=== PATIENT | male | born 1945 | race Caucasian/White ===

== ENCOUNTER → 2018-06-20 | Outpatient (CLI) | payer MEDICARE, OTHER ==
[~2018-06-20] MED LIST: CEP500 PO; ESC10 PO
--- NOTE | 2018-06-20 12:07 | RADIOLOGY IMAGING REPORT ---
FACILITY: [facility] PATIENT NAME: Mike Sy : 1945 MR: [id number] V: [id number] EXAM DATE: ORDERING PHYSICIAN: BRENDON GUADARRAMA TECHNOLOGIST: Location: [facility] - [place] Patient: Mike Sy : 1945 Visit/Account:[id number] Date of Sevice: 06/20/2018 Exam type: CHEST PA AND LAT History: Cough x2 weeks hypoxia Comparison: October 26, 2015. Findings: Increased bronchial vascular markings are seen in the medial right lung base when compared to the dante or study. Left lung is relatively free of consolidation. There is no evidence of pleural effusions or overt pulmonary edema. Cardiac silhouette is normal in size. IMPRESSION: 1. Increased bronchial vascular markings in the medial right lung base when compared the prior study . This could represent an acute infectious/inflammatory process. Short-term interval follow-up ches t recommended Report Dictated By: Hilary Limon MD at 06/20/2018 12:00 PM Report E-Signed By: Hilary Limon MD at 06/20/2018 12:02 PM WSN:[email or web address]
== END ==
LOC: RAD 11:18
PROVIDERS: ATTEND Nurse Practitioner Family
DX: R05 Cough (principal); R09.02 Hypoxemia
CPT/HCPCS: 71046

== ENCOUNTER → 2018-06-26 | Outpatient (CLI) | payer MEDICARE, OTHER ==
--- NOTE | 2018-06-26 13:22 | RADIOLOGY IMAGING REPORT ---
FACILITY: [facility] - [place] PATIENT NAME: Mike Sy : 1945 MR: [id number] V: [id number] EXAM DATE: ORDERING PHYSICIAN: BRENDON GUADARRAMA TECHNOLOGIST: Location: [facility] - [place] Patient: Mike Sy : 1945 Visit/Account:[id number] Date of Sevice: 06/26/2018 Exam type: CHEST PA LAT History: Source of breath, hypoxia, cough Comparison: June 20, 2018. Findings: There is been further increase in the bronchovascular markings in the right lung base with mild eleva tion right hemidiaphragm. This suggests at least a component of atelectasis although a superimposed infiltrate is also in the differential diagnosis. The left lung appears relatively well aerated. Th ere is no evidence of pleural effusions or overt pulmonary edema. The cardiac silhouette is normal i n size. IMPRESSION: 1. Increasing buckle vascular markings in the right lung base consistent with atelectasis and or inf iltrate Report Dictated By: Hilary Limon MD at 06/26/2018 1:17 PM Report E-Signed By: Hilary Limon MD at 06/26/2018 1:19 PM WSN:[email or web address]
== END ==
LOC: RAD 11:49
PROVIDERS: ATTEND Nurse Practitioner Family
DX: R06.02 Shortness of breath (principal); R09.02 Hypoxemia; R05 Cough
CPT/HCPCS: 71046

== ENCOUNTER 2018-07-01 14:13 | Emergency (ER) | payer MEDICARE, OTHER ==
[~2018-07-01 14:13] MED LIST changes: -RIVA15TA PO
--- NOTE | 2018-07-01 14:27 | ER Report ---
History and Physical Time Seen By MD: 14:22 Hx. of Stated Complaint: PATIENT SEEN IN DOCTORS OFFICE THIS MORNING. WAS TOLD HE NEEDED A CAT SCAN TO RULE OUT A BLOOD CLOT HPI/ROS CHIEF COMPLAINT: Cough and dyspnea HISTORY OF PRESENT ILLNESS: This is a 72-year-old male who presents to the emergency department for a chronic cough and shortness of breath. Patient states that roughly 1 month ago he developed a cough, has been chronic since, he is followed up with his primary care provider 2 times, has been placed on antibiotics twice for pneumonia. Patient states that he's had increased shortness of breath over the last 1-2 weeks, with more pronounced shortness of breath over the last 4 days. The patient was seen and evaluated by his primary care provider today, the did some laboratory studies and noted his SPO2 to be in the 80s in their office. The patient's d-dimer came back elevated at his primary care providers, subsequently was sent to the ER for further evaluation. Patient arrives on oxygen from his primary care provider, normally does not wear oxygen. Has no history of lung disease. Denies chest pain. No nausea or vomiting. No headaches. No rashes or headaches. No fevers or chills. REVIEW OF SYSTEMS: Constitutional: No fever, no chills. Eyes: No discharge. ENT: No sore throat. Cardiovascular: No chest pain, no palpitations. Respiratory: As above. Gastrointestinal: No abdominal pain, no vomiting. Genitourinary: No hematuria. Musculoskeletal: No back pain. Skin: No rashes. Neurological: No headache. Allergies: Coded Allergies: No Known Allergies (Verified Allergy, Mild, 08/03/09) Home Meds Active Scripts Rivaroxaban 15 Mg (XARELTO 15 MG) 15 Mg Tablet, 15 MG PO BID for 21 Days, #41 TAB 0 Refills Prov:RADHA ISAACS WARP SPOOLER-BC 07/01/18 Reported Medications Escitalopram Oxalate (Lexapro) 10 Mg Tab, 15 MG PO QDAY, 0 Refills 11/18/08 Past Medical/Surgical History The patient has a past medical and surgical history of broken arm and leg as a child, wears glasses, partial thyroidectomy, anxiety and depression. Reviewed Nurses Notes: Yes Hx Smoking: Yes (CIGARS 3 DAILY/2009) Hx Substance Use Disorder: No Hx Alcohol Use: Yes Constitutional Vital Sign - Last 24 Hours 07/01/18 07/01/18 07/01/18 07/01/18 14:16 14:16 14:20 14:30 Temp 97.6 97.6 Pulse 69 69 Resp 16 16 B/P (MAP) 150/84 150/84 (106) 150/84 (106) 140/88 (105) Pulse Ox 86 86 O2 Delivery Nasal Cannula Room Air 07/01/18 07/01/18 07/01/18 07/01/18 14:43 14:50 15:00 15:14 Pulse 75 Resp 13 B/P (MAP) 135/68 (90) Pulse Ox 88 O2 Flow Rate 2.0 3.0 07/01/18 16:20 Pulse 75 Resp 16 B/P (MAP) 142/82 (102) Pulse Ox 95 O2 Delivery Nasal Cannula O2 Flow Rate 2 Physical Exam General Appearance: The patient is alert, has no immediate need for airway protection and no signs of toxicity. Eyes: Pupils equal and round no pallor or injection. ENT, Mouth: Mucous membranes are moist. No petechiae to the soft palate. Respiratory: Diminished throughout, coarse in the right lower and upper lobes. Cardiovascular: Regular rate and rhythm, no murmurs, clicks or rubs. Gastrointestinal: Abdomen is soft and non tender, no masses, bowel sounds normal. Skin: Warm and dry, no rashes. Musculoskeletal: Neck is supple non tender. Extremities are nontender, nonswollen and have full range of motion. DIFFERENTIAL DIAGNOSIS: After history and physical exam differential diagnosis was considered for shortness of breath including but not limited to pulmonary infectious process, COPD, asthma, pulmonary embolus and congestive heart failure. Medical Decision Making Data Points Laboratory Hematology Test 07/01/18 15:33 Chemistry Test 07/01/18 15:33 Coagulation Test 07/01/18 15:33 EKG/Imaging EKG Interpretation 12 lead EKG: Time of EKG 1456. Rhythm: Normal sinus rhythm, ventricular rate 64 bpm. [place]: normal QRS: normal ST segments: No ST depression or elevation identified. No previous EKGs for comparison. Imaging Location: [facility] [place] Patient: Mike Sy : 1945 Visit/Account:[id number] Date of Sevice: 07/01/2018 EXAMINATION: CTA of the chest with IV contrast HISTORY: Shortness of breath. Hypoxia. TECHNIQUE: Pulmonary embolus protocol - Thin axial CT images of the chest were obtained with IV contrast during maximal pulmonary arterial opacification. Reconstruction of the source data includes multiplanar 2D coronal and sagittal reconstructed images, and 3D coronal and sagittal MIP images. [place] images have been stored on PACS. One of the following dose optimization techniques was utilized in the performance of this exam: Automated exposure control; adjustment of the mA and/or kV according to the patient's size; or use of an iterative reconstruction technique. Specific details can be referenced in the facility's radiology CT exam operational policy. Contrast: 75 mL of IV Isovue-370. COMPARISON: None. FINDINGS: Pulmonary arteries: Exam is positive for pulmonary embolism. In the right lung there is a filling defect in the right upper lobe pulmonary artery, extending into several segmental and subsegmental pulmonary artery branches. There are ad ditional small filling defects present within segmental and subsegmental pulmonary artery branches in the right middle and lower lobes. In the left lung there are several small filling defects present within segmental and subsegmental pulmonary artery branches in the left upper and lower lobes. Overall small to moderate clot burden. Heart, aorta, and great vessels: Normal caliber thoracic aorta. Normal heart size. No pericardial effusion. Lungs and pleura: There are a few strands of scarring and/or subsegmental atelectasis in the mid and lower lungs bilaterally. No suspicious focal consolidation or evidence of pulmonary infarct. The central airways are patent, with mild bronchial wall thickening. No pleural effusion or pneumothorax. Mediastinum and anthony: Negative. Visualized upper abdomen: Unremarkable. Chest wall: Negative. Bones: Negative. IMPRESSION: 1. Positive exam for pulmonary embolism. Small to moderate clot burden. Filling defect in the right upper lobe pulmonary artery and in several segmental and subsegmental pulmonary artery branches in the upper and lower lungs bilaterally. 2. Normal heart size. No CT evidence of right heart strain. 3. Mild diffuse bronchial wall thickening may be compatible with an acute or chronic bronchitis. No suspicious focal consolidation or evidence of pulmonary infarct. 4. Regions of subsegmental atelectasis or scarring in the mid and lower lungs. Findings were discussed with RADHA ISAACS at 07/01/2018 3:24 PM. Report Dictated By: Ace Mckeon MD at 07/01/2018 3:13 PM Report E-Signed By: Ace Mckeon MD at 07/01/2018 3:26 PM WSN:[id number] ED Course/Re-evaluation Clinical Indication for ER IV: IV Access ED Course The patient was admitted to room. A history and physical obtained. Differential diagnoses were considered. An IV was started. Lab studies from the patient's [facility] provider visit completed at the [facility], CBC unremarkable, chemistry showing elevated calcium at 11.3, d-dimer 1.23. A CTA of the chest showing Positive exam for pulmonary embolism. Small to moderate clot burden. The patient is a 30 and set up with home O2, we discussed the pros and cons of anticoagulation, we discussed several options, ultimately the patient was placed on Xarelto. Patient was given 1st dose of Xarelto in the emergency department, a protection was sent to the patient's pharmacy. I did call and update the patient's primary care provider, he will follow-up within the next 5 days for reevaluation. While the patient was in the emergency department he remains on oxygen, 2 L with saturation in the mid 90s. No signs of distress. Patient was instructed to return to the emergency department for any other concerns or worsening symptoms, patient expressed understanding was discharged home. He was in agreement with this plan care. Decision to Disposition Date: Jul 01, 2018 Decision to Disposition Time: 15:54 Depart Departure Latest Vital Signs Vital Signs Date Time Temp Pulse Resp B/P (MAP) Pulse Ox O2 Delivery O2 Flow Rate FiO2 07/01/18 16:20 75 16 142/82 (102) 95 Nasal Cannula 2 07/01/18 14:16 97.6 Impression: Primary Impression: Pulmonary embolism Condition: Improved Disposition: HOME OR SELF-CARE Referrals: BRENDON GUADARRAMA (PCP) 5 Days New Scripts Rivaroxaban 15 Mg (XARELTO 15 MG) 15 Mg Tablet 15 MG PO BID for 21 Days, #41 TAB 0 Refills Prov: RADHA ISAACSP- 07/01/18 Patient Instructions: Pulmonary Embolism (GEN), Safe Use of Anticoagulants (ED) Additional Instructions: Your CT is positive for blood clots in both lungs. I have started you on Xarelto, a blood thinner. You will take this medication once in the morning and once in the evening for 21 days, after the 21 days you take a different dose of Xarelto once a day until no longer needed. While on Xarelto you are at increased risk for bleeding, if you have an injury, laceration it will take longer to stop the bleeding. If you have a head injury you need to follow up in the nearest ED as you are at increased risk for bleeding in the brain. Avoid medications such as Ibuprofen as these will increase your risk for bleeding too. Take 500-1000ng of Tylenol as needed for aches or pains. Drink plenty of water. Get plenty of rest. Return to the ED for any other concerns or worsening symptoms. Problem Qualifiers Primary Impression: Pulmonary embolism Pulmonary embolism type: unspecified Chronicity: acute Acute cor pulmonale presence: without acute cor pulmonale Qualified Codes: I26.99 - Other pulmonary embolism without acute cor pulmonale RADHA ISAACS-BC Jul 01, 2018 14:27
[2018-07-01] MEDS ORDERED: IOPAMIDOL 76% 100 ML INFUS BTL 100 ML ONE (14:48)
[2018-07-01] MEDS ORDERED: NS(*) 0.9% 50 ML BAG 50 ML ONE (14:48)
--- NOTE | 2018-07-01 15:07 | EKG ---
FACILITY: [facility] - [place] PATIENT NAME: Mike BRANTLEY : [id number] MR: [id number] V: [id number] EXAM DATE: ORDERING PHYSICIAN: RADHA ISAACS TECHNOLOGIST: ERIKA [place] Reason : SOB Blood Pressure : / mmHG Vent. Rate : 064 BPM Atrial Rate : 064 BPM P-R Int : 160 ms QRS Dur : 092 ms QT Int : 402 ms P-R-T Axes : 053 -29 022 degrees QTc Int : 414 ms Sinus rhythm Left axis Possible left atrial enlargement Poor R wave progression anteriorly No previous ECGs available Confirmed by MANDY CHANG ([id number]) on 07/02/2018 6:36:14 AM Referred By: DASHAWN Confirmed By:MANDY CHANG
--- NOTE | 2018-07-01 15:30 | RADIOLOGY IMAGING REPORT ---
[place] [facility] [place] NAME: Mike Sy : 1945 MR: [id number] V: [id number] EXAM DATE: ORDERING PHYSICIAN: RADHA ISAACS TECHNOLOGIST: Location: [facility] [place] Patient: Mike Sy : 1945 Visit/Account:[id number] Date of Sevice: 07/01/2018 EXAMINATION: CTA of the chest with IV contrast HISTORY: Shortness of breath. Hypoxia. TECHNIQUE: Pulmonary embolus protocol - Thin axial CT images of the chest were obtained with IV con trast during maximal pulmonary arterial opacification. Reconstruction of the source data includes mul tiplanar 2D coronal and sagittal reconstructed images, and 3D coronal and sagittal MIP images. Repres entative images have been stored on PACS. One of the following dose optimization techniques was utilized in the performance of this exam: Autom ated exposure control; adjustment of the mA and/or kV according to the patient's size; or use of an i terative reconstruction technique. Specific details can be referenced in the facility's radiology C T exam operational policy. Contrast: 75 mL of IV Isovue-370. COMPARISON: None. FINDINGS: Pulmonary arteries: Exam is positive for pulmonary embolism. In the right lung there is a filling de fect in the right upper lobe pulmonary artery, extending into several segmental and subsegmental pulm onary artery branches. There are additional small filling defects present within segmental and subseg mental pulmonary artery branches in the right middle and lower lobes. In the left lung there are lois ral small filling defects present within segmental and subsegmental pulmonary artery branches in the left upper and lower lobes. Overall small to moderate clot burden. Heart, aorta, and great vessels: Normal caliber thoracic aorta. Normal heart size. No pericardial ef fusion. Lungs and pleura: There are a few strands of scarring and/or subsegmental atelectasis in the mid and lower lungs bilaterally. No suspicious focal consolidation or evidence of pulmonary infarct. The lópez tral airways are patent, with mild bronchial wall thickening. No pleural effusion or pneumothorax. Mediastinum and anthony: Negative. Visualized upper abdomen: Unremarkable. Chest wall: Negative. Bones: Negative. IMPRESSION: 1. Positive exam for pulmonary embolism. Small to moderate clot burden. Filling defect in the right u pper lobe pulmonary artery and in several segmental and subsegmental pulmonary artery branches in the upper and lower lungs bilaterally. 2. Normal heart size. No CT evidence of right heart strain. 3. Mild diffuse bronchial wall thickening may be compatible with an acute or chronic bronchitis. No s uspicious focal consolidation or evidence of pulmonary infarct. 4. Regions of subsegmental atelectasis or scarring in the mid and lower lungs. Findings were discussed with RADHA ISAACS at 07/01/2018 3:24 PM. Report Dictated By: Ace Mckeon MD at 07/01/2018 3:13 PM Report E-Signed By: Ace Mckeon MD at 07/01/2018 3:26 PM WSN:[id number]
[2018-07-01] MEDS ORDERED: RIVAROXABAN 10 MG TAB PO ONE (15:55)
[2018-07-01] MEDS ORDERED: RIVA15TA PO (16:05)
[2018-07-01 16:20] VITALS: BP 142/82
== END 2018-07-01 16:27 | disposition home or self-care (01) ==
LOC: ER 14:18
DX: I26.99 Other pulmonary embolism without acute cor pulmonale (principal)
CPT/HCPCS: 36415; 71275; 81241; 81291; 83090; 85300; 85303; 85306; 86147; 93005; 99284; A9270; J7050; Q9967

== ENCOUNTER → 2018-07-01 | Outpatient (CLI) | payer MEDICARE, OTHER ==
[~2018-07-01] MED LIST changes: +RIVA15TA PO
[2018-07-01 11:24] LABS: PLATELET COUNT, AUTOMATED 237 K/uL (150-450)
== END ==
LOC: CT 10:53
PROVIDERS: ATTEND Nurse Practitioner Family
DX: I26.99 Other pulmonary embolism without acute cor pulmonale (principal); R09.02 Hypoxemia; R05 Cough; R06.02 Shortness of breath
CPT/HCPCS: 36415; 82040; 82247; 82310; 82374; 82435; 82565; 82947; 83880; 84075; 84132; 84155; 84295; 84450; 84460; 84520; 85025; 85379

== ENCOUNTER → 2018-09-30 | Outpatient (CLI) | payer MEDICARE, OTHER ==
[~2018-09-30] MED LIST changes: +IOPAMIDOL 76% 150 ML INFUS BTL 150 ML ONE; +RIVA15TA PO
--- NOTE | 2018-09-30 09:03 | RADIOLOGY IMAGING REPORT ---
FACILITY: [facility] PATIENT NAME: Mike Sy : 1945 MR: [id number] V: [id number] EXAM DATE: [id number] ORDERING PHYSICIAN: BRENDON GUADARRAMA TECHNOLOGIST: Location: [facility] Patient: Mike Sy : 1945 Visit/Account:[id number] Date of Sevice: 09/30/2018 EXAMINATION: CT chest without IV contrast CT chest with IV contrast HISTORY: Hypoxia, cough. COMPARISON: Chest radiograph from 07/01/2018 and CTA chest from 07/01/2018. TECHNIQUE: Axial images were taken through the chest without and with nonionic iodinated intravenous contrast. Sagittal and coronal reformatted images are also submitted. CONTRAST: 75 mL of IV Isovue-370. One of the following dose optimization techniques was utilized in the performance of this exam: Autom ated exposure control; adjustment of the mA and/or kV according to the patient's size; or use of an i terative reconstruction technique. Specific details can be referenced in the facility's radiology C T exam operational policy. FINDINGS: Lungs/pleura: Minimal subsegmental atelectasis or scarring in the right lower lobe. No focal consol idation or pleural effusion. Mediastinum/anthony: Negative. Heart/pericardium: Negative. Vessels: Mild atherosclerotic calcifications of the aorta and coronary arteries. Musculoskeletal/body wall: Negative. Lymph nodes: Negative. Lower neck: Heterogeneous thyroid with a coarse calcification on the left. Potential nodules on the left measuring up to 2.3 cm. Upper abdomen: Negative. IMPRESSION: 1. Minimal subsegmental atelectasis or scar in the right lower lobe, without radiographic evidence o f other acute cardiopulmonary disease. 2. Heterogeneous thyroid with potential 2.3 cm nodule on the left. Further evaluation is recommende d with thyroid ultrasound. Report Dictated By: Nga Christensen MD at 09/30/2018 8:44 AM Report E-Signed By: Nga Christensen MD at 09/30/2018 8:58 AM WSN:[email or web address]
== END ==
LOC: CT 00:47
PROVIDERS: ATTEND Nurse Practitioner Family
DX: J98.11 Atelectasis (principal); Z87.891 Personal history of nicotine dependence
CPT/HCPCS: 71270; Q9967

== ENCOUNTER → 2018-10-17 | Outpatient (CLI) | payer MEDICARE, OTHER ==
[~2018-10-17] MED LIST changes: -IOPAMIDOL 76% 150 ML INFUS BTL 150 ML ONE
--- NOTE | 2018-10-17 16:52 | RADIOLOGY IMAGING REPORT ---
FACILITY: [facility] - [place] PATIENT NAME: Mike Sy : 1945 MR: [id number] V: [id number] EXAM DATE: ORDERING PHYSICIAN: BRENDON GUADARRAMA TECHNOLOGIST: Location: [facility] - [place] Patient: Mike Sy : 1945 Visit/Account:[id number] Date of Sevice: 10/17/2018 THYROID HISTORY: Thyroid nodule on left seen on CT, patient had a right lobe biopsy in the COMPARISON: CT chest September 30, 2018 FINDINGS: SIZE: Right lobe: 3.4 x 1.6 x 1.2 cm Left lobe: 5.2 x 2.3 x 2 cm Isthmus: 5.5 mm PARENCHYMA: Diffusely heterogeneous NODULES: Right lobe: * There is a 1 cm isoechoic nodule in the superior pole the right lobe. There is a 9 mm well-circum scribed hypoechoic nodule lateral aspect of mid right lobe Left lobe: * There is a 2.3 x 1.1 x 1.3 cm well-circumscribed hypoechoic nodule inferior aspect of the left lob e. There is a 7 mm spongiform nodule medial aspect of the mid left lobe. There is a 1.1 cm hypoecho ic partially cystic nodule in the inferior left lobe. There is a 1.7 cm hypoechoic nodule in the med ial mid left lobe Isthmus: * There is a 5 mm cyst right-sided isthmus. There is a 1.8 x 1.5 x 0.9 cm well-circumscribed hypoec hoic nodule left-sided isthmus VASCULARITY: Increased bilaterally ADDITIONAL FINDINGS: None. IMPRESSION: Ultrasound guided FNA biopsy is recommended for the 2.3 cm and the 1.7 cm nodules in the left lobe as detailed above REFERENCE: 2015 [place] [employer] Management Guidelines for Adult Patients with Thyroid Nodules and D ifferentiated Thyroid Cancer: The [place] [employer] Guidelines Task Force on Thyroid Nodul es and Differentiated Thyroid Cancer. SONOGRAPHIC PATTERNS: * Benign: Purely cystic nodules (no solid component); estimated risk of malignancy <1 percent; no bi opsy recommended. * Very Low Suspicion: Spongiform or partially cystic nodules without any of the sonographic features described in low, intermediate, or high suspicion patterns; estimated risk of malignancy <3 percent; consider FNA at > 2 cm (Observation without FNA is also a reasonable option). * Low Suspicion: Isoechoic or hyperechoic solid nodule, or partially cystic nodule with eccentric so lid areas, without microcalcification, irregular margin or ETE (extra-thyroidal extension), or taller than wide shape; estimated risk of malignancy 5-10 percent; recommend FNA at >1.5 cm. * Intermediate Suspicion: Hypoechoic solid nodule with smooth margins without microcalcifications, E TE (extra-thyroidal extension), or taller than wide shape; estimated risk of malignancy 10-20 percent ; recommend FNA at > 1 cm. * High Suspicion: Solid hypoechoic nodule or solid hypoechoic component of a partially cystic nodule with one or more of the following features: irregular margins (infiltrative, microlobulated), microc alcifications, taller than wide shape, rim calcifications with small extrusive soft tissue component, evidence of ETE (extra-thyroidal extension); estimated risk of malignancy >70-90 percent; recommend FNA at > 1 cm. NOTES: * Although a sonographically suspicious subcentimeter thyroid nodule without evidence of extrathyroi melani extension or sonographically suspicious lymph nodes may be observed with close sonographic follow -up rather than pursuing immediate FNA, patient age and preference may modify decision-making. A > 50% interval increase in nodule volume and/or development of new suspicious sonographic features are felt to be a valid reasons for potential re-aspiration of a nodule previously shown to have benig n FNA cytology. Report Dictated By: Hilary Limon MD at 10/17/2018 4:32 PM Report E-Signed By: Hilary Limon MD at 10/17/2018 4:47 PM WSN:[email or web address]
== END ==
LOC: US 00:23
PROVIDERS: ATTEND Nurse Practitioner Family
DX: E04.2 Nontoxic multinodular goiter (principal)
CPT/HCPCS: 76536

== ENCOUNTER → 2018-11-12 | Outpatient (CLI) | payer MEDICARE, OTHER ==
[2018-11-11 12:14] LABS: INR 0.95
--- NOTE | 2018-11-12 17:52 | RADIOLOGY IMAGING REPORT ---
FACILITY: [facility] PATIENT NAME: Mike Sy : 1945 MR: [id number] V: [id number] EXAM DATE: ORDERING PHYSICIAN: BRENDON GUADARRAMA TECHNOLOGIST: Location: [facility] - [place], [place] Patient: Mike Sy : 1945 Visit/Account:[id number] Date of Sevice: 11/12/2018 Exam type: US BIOPSY LOC/INJ THYROID History: Two dominant left thyroid nodules Comparison: Thyroid ultrasound October 17, 2018. Findings: Informed consent was obtained. The patient's left side of his neck was prepped and draped usual ster ile fashion. Local anesthesia was accomplished with 1% lidocaine. Under direct continuous ultrasoun d visualization four separate 25-gauge FNA biopsies were obtained through each of the two dominant le ft thyroid nodules. The samples were given to the cardiopulmonary technologist chief for processing. The proced ure was accomplished without apparent complication. IMPRESSION: 1. Successful sonographically guided FNA biopsy of two separate left-sided thyroid nodules Report Dictated By: Hilary Limon MD at 11/12/2018 5:46 PM Report E-Signed By: Hilary Limon MD at 11/12/2018 5:48 PM WSN:[email or web address]
== END ==
LOC: US 00:20
PROVIDERS: ATTEND Nurse Practitioner Family
DX: E03.9 Hypothyroidism, unspecified (principal)
CPT/HCPCS: 10005; 10006; 36415; 85610; 88104; 88108; 88172